=== PATIENT | male | born 1955 | race Caucasian/White ===

== ENCOUNTER 2021-01-11 22:51 | Emergency (ER) | payer MEDICAID ==
[~2021-01-11 22:51] MED LIST: HYDR1TAB PO; IBUP-1984 PO; OMEP-84 PO; PRAV10TA38 PO
== END 2021-01-12 00:12 | disposition left against medical advice (07) ==
LOC: ER 22:51
DX: M54.9 Dorsalgia, unspecified (principal); Z53.21 Procedure and treatment not carried out due to patient leaving prior to being seen by health care provider